=== PATIENT | male | born 1950 | race Caucasian/White ===

== ENCOUNTER 2020-08-15 08:00 | Day surgery (SDC) | payer MEDICARE, OTHER ==
[~2020-08-15 08:00] MED LIST: Lactated Ringers 1,000 ML IV SCH; Midazolam 1 MG/ML 2 ML SDV ONE; Propofol 200 MG/20 ML SDV ONE
--- NOTE | 2020-08-15 09:37 | PCM.PREANE ---
Preanesthetic Assessment - Anesthesia/Transfusion/Family Hx Anesthesia History: Prior Anesthesia Without Reaction Family History of Anesthesia Reaction: No Transfusion History: No Prior Transfusion(s) - Review of Systems General: No Symptoms Pulmonary: No Symptoms Cardiovascular: No Symptoms Gastrointestinal: No Symptoms Neurological: No Symptoms Other: Reports: None - Physical Assessment NPO Status Date: 08/14/20 Height: 5 ft 10 in Weight: 111.13 kg ASA Class: 2 Mental Status: Alert & Oriented x3 Airway Class: Mallampati = 2 Dentition: Reports: Partial ROM/Head Extension: Full Lungs: Clear to Auscultation, Normal Respiratory Effort Cardiovascular: Regular Rate, Regular Rhythm - Lab Values: Laboratory Last Values SARS-CoV-2 RNA (KARIE) NEGATIVE (NEGATIVE) 08/15/20 08:10 - Allergies Allergies/Adverse Reactions: Allergies Allergy/AdvReac Type Severity Reaction Status Date / Time No Known Allergies Allergy Verified 08/15/20 08:28 - Blood Blood Available: No - Anesthesia Plan Pre-Op Medication Ordered: None - Acknowledgements Anesthesia Type Planned: General Anesthesia (tiva) Pt an Appropriate Candidate for the Planned Anesthesia: Yes Alternatives and Risks of Anesthesia Discussed w Pt/Guardian: Yes Pt/Guardian Understands and Agrees with Anesthesia Plan: Yes Additional Comments: PMH: absance seizures, none for 4 years, brittney-uses cpap, bph, htn PreAnesthesia Questionnaire HEENT History: Reports: Cataract, Hard of Hearing, Other (See Below) Other HEENT History: uses reading glasses, has upper partial removable denture and has lower partial permanent denture, has hearing aides but doesn't wear them Cardiovascular History: Reports: High Cholesterol, Hypertension Respiratory History: Reports: Sleep Apnea Other Respiratory History: uses CPAP every night Gastrointestinal History: Reports: GERD Genitourinary History: Reports: BPH, Renal Calculus Musculoskeletal History: Reports: Arthritis Neurological History: Reports: Concussion, Other (See Below) Other Neuro History: has "absentee seizures" Endocrine/Metabolic History: Reports: Obesity/BMI 30+ Oncologic (Cancer) History: Reports: Squamous Cell Carcinoma Other Oncologic History: removed from forehead Dermatologic History: Reports: None - Infectious Disease History Infectious Disease History: Reports: Measles, Mumps - Past Surgical History Head Surgeries/Procedures: Reports: None HEENT Surgical History: Reports: Cataract Surgery, Naso-Sinus Surgery GI Surgical History: Reports: Colonoscopy, EGD, Hernia, Abdominal Other GI Surgeries/Procedures: hx of Umbilical hernia repair Dermatological Surgical History: Reports: Skin Biopsy - SUBSTANCE USE Smoking Status *Q: Former Smoker Tobacco Use Within Last Twelve Months: No Recreational Drug Use History: No - HOME MEDS Home Medications: Home Meds Diltiazem HCl [Diltiazem 24Hr ER] 360 mg PO QAM 08/18/15 [History] OXcarbazepine [Oxcarbazepine] 600 mg PO BID 08/18/15 [History] Spironolactone [Aldactone] 25 mg PO BEDTIME 08/18/15 [History] Tamsulosin [Flomax] 0.4 mg PO BEDTIME 08/18/15 [History] atenoloL [Tenormin] 50 mg PO QAM 08/18/15 [History] atorvaSTATin [Lipitor] 80 mg PO BEDTIME 08/18/15 [History] Aspirin [Emery Aspirin EC] 81 mg PO BEDTIME 07/06/18 [History] traZODone HCl [Trazodone HCl] 150 mg PO BEDTIME 08/23/18 [History] Omeprazole 20 mg PO BEDTIME 08/11/20 [History] - CURRENT (IN HOUSE) MEDS Current Meds: Current Medications Lactated Ringer's (Ringers, Lactated) 1,000 mls @ 125 mls/hr IV ASDIRECTED CALI Discontinued Medications Midazolam HCl (Versed 1 Mg/Ml) Confirm Administered Dose 2 mg .ROUTE .STK-MED ONE Stop: 08/15/20 07:18 Propofol (Diprivan 20 Ml) Confirm Administered Dose 600 mg .ROUTE .STK-MED ONE Stop: 08/15/20 07:18
--- NOTE | 2020-08-15 10:11 | PCM.OPNOTE ---
- General Post-Op/Procedure Note Date of Surgery/Procedure: 08/15/20 Operative Procedure(s): Colonoscopy with cold rectal polypectomy Pre Op Diagnosis: Desire for colorectal cancer screening Post-Op Diagnosis: Rectal polyps 2 Anesthesia Technique: MAC (ASA II) Primary Surgeon: Andrei Murphy Condition: Good Free Text/Narrative:: DICTATION [id number] CPT CODE 76595
[2020-08-15] MEDS ORDERED: Lactated Ringers 1,000 ML IV SCH (10:15)
--- NOTE | 2020-08-15 10:17 | PCM.POSTAN ---
POST ANESTHESIA ASSESSMENT - MENTAL STATUS Mental Status: Alert, Oriented - VITAL SIGNS Vital Signs: Last Vital Signs Temp 97.9 F 08/15/20 09:12 Pulse 55 L 08/15/20 09:12 Resp 16 08/15/20 09:12 BP 141/67 H 08/15/20 09:12 Pulse Ox 95 08/15/20 09:12 - RESPIRATORY Respiratory Status: Respiratory Rate WNL, Airway Patent, O2 Saturation Stable - CARDIOVASCULAR CV Status: Pulse Rate WNL, Blood Pressure Stable - GASTROINTESTINAL GI Status: No Symptoms - POST OP HYDRATION Hydration Status: Adequate & Stable
[2020-08-15 10:36] VITALS: BP 121/59; PULSE 56
--- NOTE | 2020-08-15 10:39 | PCM48HPAN ---
Post Anesthesia Note - EVALUATION WITHIN 48HRS OF ANESTHETIC Vital Signs in Normal Range: Yes Patient Participated in Evaluation: Yes Respiratory Function Stable: Yes Airway Patent: Yes Cardiovascular Function Stable: Yes Hydration Status Stable: Yes Pain Control Satisfactory: Yes Nausea and Vomiting Control Satisfactory: Yes Mental Status Recovered: Yes Vital Signs: Last Vital Signs Temp 97.9 F 08/15/20 10:25 Pulse 56 L 08/15/20 10:25 Resp 14 08/15/20 10:25 BP 121/59 L 08/15/20 10:25 Pulse Ox 94 L 08/15/20 10:25
--- NOTE | 2020-08-15 14:17 | OR ---
SURGEON: Andrei Murphy M.D. DATE OF PROCEDURE: 08/15/2020 OPERATION PERFORMED: Colonoscopy with cold rectal polypectomy. PRIMARY SURGEON: Andrei uMrphy MD ANESTHESIA: MAC. ASA CLASSIFICATION: II. PREOPERATIVE DIAGNOSIS: Desire for colorectal cancer screening. POSTOPERATIVE DIAGNOSIS: Rectal polyps. DESCRIPTION OF PROCEDURE: The patient was taken to the endoscopy room, positioned on the endoscopy table in the left lateral decubitus position. Time-out was called for appropriate identification of the patient and procedure. Monitored anesthesia care was provided. The colonoscope was inserted into the rectum and advanced with minimal difficulty to the cecum where the colonoscope was retroflexed to visualize the ascending colon from below. The colonoscope was then straightened and slowly withdrawn. The cecum, ascending colon, hepatic flexure, transverse colon, splenic flexure, descending colon, sigmoid colon were very well visualized. No tumors, polyps, diverticula, or angiodysplastic changes were noted anywhere in the lower gastrointestinal tract. The colonoscope was withdrawn to the rectum and retroflexed to visualize the anal orifice from above. The patient did have a couple of small polyps there that appeared hyperplastic in nature. These were removed with cold biopsy forceps. No significant hemorrhoidal changes were noted. The colonoscope was then straightened, the rectum aspirated, and the colonoscope removed. The patient tolerated the procedure well and was taken to recovery room in stable condition. LIAM / ABRAHAN /[id number]
== END 2020-08-15 10:54 | disposition home or self-care (01) ==
LOC: MW.SDS 08:00
PROVIDERS: ATTEND Surgery
DX: Z12.11 Encounter for screening for malignant neoplasm of colon (principal); K62.1 Rectal polyp; I10 Essential (primary) hypertension; K21.9 Gastro-esophageal reflux disease without esophagitis; E78.00 Pure hypercholesterolemia, unspecified; M17.11 Unilateral primary osteoarthritis, right knee; N40.1 Benign prostatic hyperplasia with lower urinary tract symptoms; N13.8 Other obstructive and reflux uropathy; G47.30 Sleep apnea, unspecified; G40.209 Localization-related (focal) (partial) symptomatic epilepsy and epileptic syndromes with complex partial seizures, not intractable, without status epilepticus; E66.9 Obesity, unspecified; Z01.812 Encounter for preprocedural laboratory examination; Z20.828 Contact with and (suspected) exposure to other viral communicable diseases; Z79.899 Other long term (current) drug therapy; Z79.82 Long term (current) use of aspirin; Z98.890 Other specified postprocedural states; Z87.891 Personal history of nicotine dependence; Z68.35 Body mass index [BMI] 35.0-35.9, adult
CPT/HCPCS: 45380; J2250; J2704; J7120; U0002; 00812; 88305